=== PATIENT | male | born 1955 | race American Indian/Alaskan Native ===

== ENCOUNTER 2020-03-29 12:07 | Emergency (ER) | payer BC, OTHER ==
--- NOTE | 2020-03-29 13:26 | XRay Report ---
LEFT SHOULDER 3 VIEWS INDICATION: MAIN: lt shoulder Pain after blunt trauma. COMPARISON: No relevant prior imaging study available. FINDINGS: No acute, displaced fracture or dislocation is seen. Moderate acromioclavicular and moderate to advan tony glenohumeral degenerative change is noted. No foreign bodies. IMPRESSION: 1. No acute findings. Signer Name: Antonio Singh MD Signed: 03/29/2020 1:22 PM Workstation Name: [id number]
--- NOTE | 2020-03-29 13:28 | Emergency Department Report ---
HPI - General Chief Complaint: Fall PUI?: No Time Seen by Provider: 03/29/20 12:31 - HPI HPI: Room 5 The patient is a 64-year-old male present with a chief complaint of pain after blunt force injury. The patient states 2 days ago he was sitting on a palate that was struck by a forklift. He states this caused him to be thrown into a pole injuring his left shoulder and lower back. Patient denies loss of consciousness. Location: [See above] Duration: [See above] Quality: [See above] Severity: [See above] Timing: [See above] Context: [See above] Modifying factors: [See above] Associated signs and symptoms: [see above] Mode of Transportation: [the pt drove himself to the emergency department and there are no visitors present] ED Past Medical Hx - Past Medical History Previous Medical History?: Yes Hx Hypertension: Yes Hx CVA: Yes Hx Diabetes: Yes - Surgical History Past Surgical History?: Yes Additional Surgical History: left patella - Family History Family history: no significant - Social History Smoking Status: Current Every Day Smoker (1/7 pack/day) Substance Use Type: Alcohol (Occasional) - Medications Home Medications: Home Medications Medication Instructions Recorded Confirmed Last Taken Type Aspirin 325 mg PO QDAY tablet 03/16/16 Unknown Rx AtorvaSTATin [Lipitor] 20 mg PO QHS tablet 03/16/16 Unknown Rx Insulin Glargine [Lantus VIAL] 5 units SUB-Q QHS 30 Days units 03/16/16 Unknown Rx Multivitamin Tab W-MINERAL 1 each PO QDAY tablet 03/16/16 Unknown Rx [Multiple Vitamin/Mineral (Theragran M)] [place]-3 Fatty Acids/Fish Oil [Fish 2,000 mg PO BID capsule 03/16/16 Unknown Rx Oil] Thiamine [Vitamin B-1] 100 mg PO QDAY tablet 03/16/16 Unknown Rx amLODIPine 10 mg PO QDAY #30 tablet 03/16/16 Unknown Rx glipiZIDE [Glucotrol] 10 mg PO BIDDIAB tablet 03/16/16 Unknown Rx hydroCHLOROthiazide [HCTZ] 25 mg PO QDAY #30 tablet 03/16/16 Unknown Rx lisinopriL [Zestril TAB] 20 mg PO QDAY #30 tablet 03/16/16 Unknown Rx HYDROcodone/APAP 5-325 [[place] 1 each PO Q6HR PRN #8 tablet 11/16/18 Unknown Rx 5/325] Cyclobenzaprine [Flexeril] 10 mg PO TID PRN #10 tablet 03/29/20 Unknown Rx HYDROcodone/APAP 5-325 [[place] 1 - 2 each PO Q6HR PRN #10 tablet 03/29/20 Unknown Rx 5/325] Ibuprofen [Motrin 800 MG tab] 800 mg PO Q8HR PRN #20 tablet 03/29/20 Unknown Rx ED Review of Systems ROS: Stated complaint: WORK PLACE INJURY Other details as noted in HPI Constitutional: no symptoms reported Respiratory: no symptoms reported Musculoskeletal: back pain, arthralgia Physical Exam - Physical Exam Vital Signs: Vital Signs 03/29/20 03/29/20 03/29/20 12:13 12:34 12:40 Temperature 98.1 F 97.5 F L Pulse Rate 79 76 Respiratory 16 22 22 Rate Blood Pressure 191/89 Blood Pressure 174/84 [Left] O2 Sat by Pulse 99 98 Oximetry Physical Exam: GENERAL: The patient is well-developed well-nourished male lying on stretcher not appearing to be in acute distress. [] HEENT: Normocephalic. Atraumatic. Extraocular motions are intact. Patient has moist mucous membranes. NECK: Supple. No axial tenderness to palpation CHEST/LUNGS: There is no respiratory distress noted. HEART/CARDIOVASCULAR: Regular. There is no tachycardia. 2+ left radial pulse ABDOMEN: Abdomen is soft, nontender. Patient has normal bowel sounds. There is no abdominal distention. SKIN: There is no rash. There is no edema. There is no diaphoresis. NEURO: The patient is awake, alert, and oriented. The patient is cooperative. The patient has no focal neurologic deficits. The patient has normal speech MUSCULOSKELETAL: There is tenderness to palpation of the lower thoracic spine and lumbar spine ED Course Vital Signs 03/29/20 03/29/20 03/29/20 12:13 12:34 12:40 Temperature 98.1 F 97.5 F L Pulse Rate 79 76 Respiratory 16 22 22 Rate Blood Pressure 191/89 Blood Pressure 174/84 [Left] O2 Sat by Pulse 99 98 Oximetry ED Medical Decision Making - Radiology Data Radiology results: report reviewed (Left shoulder x-ray, thoracic spine x-ray, lumbar spine x-ray), image reviewed (Left shoulder x-ray, thoracic spine x-ray, lumbar spine x-ray) interpreted by me: Left shoulder x-ray-no acute fracture Lumbar spine x-ray-no acute fracture Thoracic spine x-ray-no acute fracture Findings [address] [address] XRay Report Signed Patient: FARHAD LARA MR#: [id number] : Acct:[id number] Age/Sex: 64 / M ADM Date: 03/29/20 Loc: ED Attending Dr: Ordering Physician: LISBET MARIE MD Date of Service: 03/29/20 Procedure(s): XR shoulder 2+V LT Accession Number(s): [id number] cc: LISBET MARIE MD Fluoro Time In Minutes: LEFT SHOULDER 3 VIEWS INDICATION: MAIN: lt shoulder Pain after blunt trauma. COMPARISON: No relevant prior imaging study available. FINDINGS: No acute, displaced fracture or dislocation is seen. Moderate acromioclavicular and moderate to advanced glenohumeral degenerative change is noted. No foreign bodies. IMPRESSION: 1. No acute findings. Findings [address] [address] XRay Report Signed Patient: FARHAD LARA MR#: [id number] : 1955 Acct:[id number] Age/Sex: 64 / M ADM Date: 03/29/20 Loc: ED Attending Dr: Ordering Physician: LISBET MARIE MD Date of Service: 03/29/20 Procedure(s): XR spine thoracic 3V Accession Number(s): [id number] cc: LISBET MARIE MD Fluoro Time In Minutes: LUMBAR SPINE 3 VIEWS THORACIC SPINE 3 VIEWS INDICATION: MAIN: Back Pain after blunt trauma. COMPARISON: Lumbar radiographs 11/16/2018. FINDINGS: Thoracic spine: There is mild height loss anteriorly and a single midthoracic vertebral body. This does not appear acute. There is no subluxation. As the patient is positioned, there is mild thoracic kyphosis. There is mild upper thoracic discogenic degenerative change. Lumbar spine: Lumbar vertebral body height is maintained. No fracture is seen. Mid to lower discogenic degenerative changes have slightly progressed since the prior exam. Lower lumbar facet arthropathy is again noted. Lumbar alignment is within normal limits. IMPRESSION: 1. No acute findings. Signer Name: Antonio Singh MD Signed: 03/29/2020 1:24 PM Workstation Name: [id number] Transcribed By: NELSY Dictated By: Antonio Singh MD Electronically Authenticated By: Antonio Singh MD Signed Date/Time: 03/29/20 1324 DD/ 1322 TD/TT: Thoracic spine x-ray (read by radiologist)-no acute findings - Differential Diagnosis Shoulder separation, shoulder strain, lumbar strain, lumbar fracture Critical care attestation.: If time is entered above; I have spent that time in minutes in the direct care of this critically ill patient, excluding procedure time. ED Disposition Clinical Impression: Contusion of left shoulder, Lumbar strain Disposition: TO HOME OR SELFCARE Is pt being admited?: No Does the pt Need Aspirin: No Condition: Stable Instructions: Muscle Strain (ED) Additional Instructions: Return to the emergency department should you develop worsening symptoms, inability to tolerate food or liquids, high fever or any other concerns Prescriptions: Cyclobenzaprine [Flexeril] 10 mg PO TID PRN #10 tablet PRN Reason: Muscle Spasm Ibuprofen [Motrin 800 MG tab] 800 mg PO Q8HR PRN #20 tablet PRN Reason: Pain , Severe (7-10) HYDROcodone/APAP 5-325 [[place] 5/325] 1 - 2 each PO Q6HR PRN #10 tablet PRN Reason: Pain Referrals: ROSELIA TEE MD [Staff Physician] - 3-5 Days (Dr. Tee is an orthopedic surgeon. Please follow-up with him for further evaluation) Time of Disposition: 13:44
--- NOTE | 2020-03-29 13:28 | XRay Report ---
LUMBAR SPINE 3 VIEWS THORACIC SPINE 3 VIEWS INDICATION: MAIN: Back Pain after blunt trauma. COMPARISON: Lumbar radiographs 11/16/2018. FINDINGS: Thoracic spine: There is mild height loss anteriorly and a single midthoracic vertebral body. This do es not appear acute. There is no subluxation. As the patient is positioned, there is mild thoracic ky phosis. There is mild upper thoracic discogenic degenerative change. Lumbar spine: Lumbar vertebral body height is maintained. No fracture is seen. Mid to lower discogeni c degenerative changes have slightly progressed since the prior exam. Lower lumbar facet arthropathy is again noted. Lumbar alignment is within normal limits. IMPRESSION: 1. No acute findings. Signer Name: Antonio Singh MD Signed: 03/29/2020 1:24 PM Workstation Name: [id number]
== END 2020-03-29 14:21 | disposition home or self-care (01) ==
LOC: ED 12:07
DX: S40.012A Contusion of left shoulder, initial encounter (principal); S30.0XXA Contusion of lower back and pelvis, initial encounter; I10 Essential (primary) hypertension; E11.9 Type 2 diabetes mellitus without complications; F17.200 Nicotine dependence, unspecified, uncomplicated; Z98.890 Other specified postprocedural states; Z86.73 Personal history of transient ischemic attack (TIA), and cerebral infarction without residual deficits; Z79.899 Other long term (current) drug therapy; W22.8XXA Striking against or struck by other objects, initial encounter; Y93.89 Activity, other specified; Y92.89 Other specified places as the place of occurrence of the external cause; Y99.0 Civilian activity done for income or pay
CPT/HCPCS: 72072; 72100; 99283